=== PATIENT | male | born 1950 | race Caucasian/White ===

== ENCOUNTER 2018-05-29 08:06 | Day surgery (SDC) | payer OTHER, MEDICARE ==
[2018-05-29] MEDS: Polymyxin B/Trimethoprim 10 ML Bottle EYERT SCH ×4 (09:39→11:26)
[2018-05-29] MEDS: Brimonidine 0.2% Ophth Soln 5 ML Bottle EYERT SCH ×4 (09:47→11:26)
[2018-05-29] MEDS: Phenylephrine 2.5% Ophth Soln 2 ML Bot EYERT SCH ×6 (09:54→11:04)
--- NOTE | 2018-05-29 09:58 | PCM.PREANE ---
Preanesthetic Assessment - Procedure Proposed Procedure: cataract - Anesthesia/Transfusion/Family Hx Anesthesia History: Prior Anesthesia Without Reaction Family History of Anesthesia Reaction: No Transfusion History: No Prior Transfusion(s) - Review of Systems General: No Symptoms Pulmonary: No Symptoms Cardiovascular: No Symptoms Gastrointestinal: No Symptoms Neurological: No Symptoms Other: Reports: Diabetes - Physical Assessment NPO Status Date: 05/28/18 NPO Status Time: 23:00 O2 Sat by Pulse Oximetry: 97 Respiratory Rate: 16 Vital Signs: Last Vital Signs Temp 98.3 F 05/29/18 09:30 Pulse 72 05/29/18 09:30 Resp 16 05/29/18 09:30 BP 141/71 H 05/29/18 09:30 Pulse Ox 97 05/29/18 09:30 Height: 5 ft 10 in Weight: 83.915 kg ASA Class: 2 Mental Status: Alert & Oriented x3 Airway Class: Mallampati = 1 Dentition: Reports: Broken Tooth/Teeth, Missing Tooth/Teeth, Caries Thyro-Mental Finger Breadths: 3 Mouth Opening Finger Breadths: 3 ROM/Head Extension: Full Lungs: Clear to Auscultation, Normal Respiratory Effort Cardiovascular: Regular Rate, Regular Rhythm - Allergies Allergies/Adverse Reactions: Allergies Allergy/AdvReac Type Severity Reaction Status Date / Time No Known Allergies Allergy Verified 05/28/18 14:26 - Blood Blood Available: No - Anesthesia Plan Beta Elvira: Metoprolol Med Last Dose Date: 05/29/18 Med Last Dose Time: 10:15 - Acknowledgements Anesthesia Type Planned: MAC Pt an Appropriate Candidate for the Planned Anesthesia: Yes Alternatives and Risks of Anesthesia Discussed w Pt/Guardian: Yes Pt/Guardian Understands and Agrees with Anesthesia Plan: Yes PreAnesthesia Questionnaire HEENT History: Reports: Cataract, Other (See Below) (glasses) Cardiovascular History: Reports: High Cholesterol, Hypertension, Stents (4-6 years ago) Respiratory History: Reports: None Gastrointestinal History: Reports: None Endocrine/Metabolic History: Reports: Diabetes, Type II - Past Surgical History Cardiovascular Surgical History: Reports: Coronary Artery Stent Neurological Surgical History: Reports: Laminectomy (times 2), Other (See Below) - SUBSTANCE USE Smoking Status *Q: Never Smoker Tobacco Use Within Last Twelve Months: No Second Hand Smoke Exposure: No Days Per Week of Alcohol Use: 1 Recreational Drug Use History: No - HOME MEDS Home Medications: Home Meds Aspirin [[place] Aspirin] 81 mg PO DAILY 05/28/18 [History] Losartan [Cozaar] 100 mg PO DAILY 05/28/18 [History] Metoprolol Succinate [Toprol XL 50mg] 25 mg PO DAILY 05/28/18 [History] Multivitamin [Daily Nader] 1 each PO DAILY 05/28/18 [History] Saxagliptin HCl [Onglyza] 5 mg PO DAILY 05/28/18 [History] amLODIPine Besylate [Amlodipine Besylate] 10 mg PO DAILY 05/28/18 [History] atorvaSTATin [Lipitor] 10 mg PO BEDTIME 05/28/18 [History] metFORMIN HCl [Metformin HCl] 1,000 mg PO BID 05/28/18 [History] - CURRENT (IN HOUSE) MEDS Current Meds: Current Medications Brimonidine Tartrate (Alphagan 0.2% Oph Soln) 0 ml EYERT ASDIRECTED ROSALIO Stop: 05/29/18 18:00 Last Admin: 05/29/18 09:47 Dose: 1 drop Cefuroxime Sodium (Zinacef) 0 mg EYERT ASDIRECTED ROSALIO Stop: 05/29/18 18:00 Lidocaine HCl (Xylocaine-Mpf 1%) 0 ml INJECT ASDIRECTED ROSALIO Stop: 05/29/18 18:00 Phenylephrine HCl (Alexey-Synephrine 2.5% Ophth Soln) 0 ml EYERT ASDIRECTED ROSALIO Stop: 05/29/18 18:00 Pilocarpine HCl (Pilocar 4% Ophth Soln) 0 ml EYERT ASDIRECTED ROSALIO Stop: 05/29/18 18:00 Polymyxin/Trimethoprim Sulfate (Polytrim Ophth Soln) 0 ml EYERT ASDIRECTED ROSALIO Stop: 05/29/18 18:00 Last Admin: 05/29/18 09:39 Dose: 1 drop Tetracaine HCl (Tetracaine 0.5% Steri-Unit Bee) 0 ml EYERT ASDIRECTED ROSALIO Stop: 05/29/18 18:00 Tropicamide (Mydriacyl 1% Oph Soln) 0 ml EYERT ASDIRECTED ROSALIO Stop: 05/29/18 18:00
[2018-05-29] MEDS: Tropicamide 1% Ophth Soln 15 ML Bottle EYERT SCH ×4 (10:00→10:42)
[2018-05-29] MEDS: Lidocaine 1% PF 2 ML SDV INJECT SCH ×2 (10:25→11:12)
[2018-05-29] MEDS: Tetracaine HCl/PF 0.5% 4 ML Bottle EYERT SCH ×3 (10:25→11:12)
[2018-05-29] MEDS: Cefuroxime 10 MG/ML SYRINGE EYERT SCH ×2 (10:26→11:25)
[2018-05-29] MEDS: Pilocarpine 4% Ophth Soln 15 ML Bot EYERT SCH ×2 (10:26→11:26)
[2018-05-29] MEDS ORDERED: Metoprolol Succinate 25 MG Tab.ER PO ONE (10:30)
--- NOTE | 2018-05-29 11:35 | PCM48HPAN ---
Post Anesthesia Note - EVALUATION WITHIN 48HRS OF ANESTHETIC Vital Signs in Normal Range: Yes Patient Participated in Evaluation: Yes Respiratory Function Stable: Yes Airway Patent: Yes Cardiovascular Function Stable: Yes Hydration Status Stable: Yes Pain Control Satisfactory: Yes Nausea and Vomiting Control Satisfactory: Yes Mental Status Recovered: Yes Pulse Rate: 72 Resp Rate: 16 Blood Pressure: 141/71
== END 2018-05-29 11:35 | disposition home or self-care (01) ==
LOC: JD.SDS 08:06
PROVIDERS: ATTEND Ophthalmology
DX: E11.36 Type 2 diabetes mellitus with diabetic cataract (principal); H25.813 Combined forms of age-related cataract, bilateral; H31.093 Other chorioretinal scars, bilateral; H35.372 Puckering of macula, left eye; H02.834 Dermatochalasis of left upper eyelid; H02.831 Dermatochalasis of right upper eyelid; E11.3293 Type 2 diabetes mellitus with mild nonproliferative diabetic retinopathy without macular edema, bilateral; I10 Essential (primary) hypertension; E78.00 Pure hypercholesterolemia, unspecified; Z95.5 Presence of coronary angioplasty implant and graft; Z79.82 Long term (current) use of aspirin; Z79.84 Long term (current) use of oral hypoglycemic drugs; Z79.899 Other long term (current) drug therapy
CPT/HCPCS: 66982; A9270; C1780; J0697; J2001; 82962

== ENCOUNTER 2018-07-03 06:45 | Day surgery (SDC) | payer OTHER, MEDICARE ==
[2018-07-03] MEDS: Polymyxin B/Trimethoprim 10 ML Bottle EYELF SCH ×4 (07:12→08:54)
--- NOTE | 2018-07-03 07:14 | PCM.PREANE ---
Preanesthetic Assessment - Anesthesia/Transfusion/Family Hx Anesthesia History: Prior Anesthesia Without Reaction Family History of Anesthesia Reaction: No Transfusion History: No Prior Transfusion(s) - Review of Systems General: No Symptoms Pulmonary: No Symptoms Cardiovascular: Other (HTN, CAD with stent placement) Gastrointestinal: No Symptoms Other: Reports: None, Diabetes (dm 2, on oral agents) - Physical Assessment NPO Status Date: 07/02/18 NPO Status Time: 18:30 Pulse: 63 O2 Sat by Pulse Oximetry: 98 Respiratory Rate: 16 Blood Pressure: 144/71 Vital Signs: Last Vital Signs Temp 36.4 C 07/03/18 06:55 Pulse 63 07/03/18 06:55 Resp 16 07/03/18 06:55 BP 144/71 H 07/03/18 06:55 Pulse Ox 98 07/03/18 06:55 Height: 1.78 m Weight: 83.915 kg ASA Class: 2 Mental Status: Alert & Oriented x3 Airway Class: Mallampati = 2 Dentition: Reports: Normal Dentition Thyro-Mental Finger Breadths: 3 Mouth Opening Finger Breadths: 3 ROM/Head Extension: Full Lungs: Clear to Auscultation, Normal Respiratory Effort Cardiovascular: Regular Rate, Regular Rhythm - Allergies Allergies/Adverse Reactions: Allergies Allergy/AdvReac Type Severity Reaction Status Date / Time No Known Allergies Allergy Verified 07/02/18 13:52 - Blood Blood Available: No Product(s) Available: None - Anesthesia Plan Pre-Op Medication Ordered: None Beta Elvira: Metoprolol Med Last Dose Date: 07/02/18 Med Last Dose Time: 17:00 - Acknowledgements Anesthesia Type Planned: MAC Pt an Appropriate Candidate for the Planned Anesthesia: Yes Alternatives and Risks of Anesthesia Discussed w Pt/Guardian: Yes Pt/Guardian Understands and Agrees with Anesthesia Plan: Yes PreAnesthesia Questionnaire HEENT History: Reports: Cataract, Other (See Below) (glasses) Cardiovascular History: Reports: High Cholesterol, Hypertension, Stents (4-6 years ago) Respiratory History: Reports: None Gastrointestinal History: Reports: None Endocrine/Metabolic History: Reports: Diabetes, Type II - Past Surgical History Cardiovascular Surgical History: Reports: Coronary Artery Stent Neurological Surgical History: Reports: Laminectomy (times 2), Other (See Below) - HOME MEDS Home Medications: Home Meds Aspirin [[place] Aspirin] 81 mg PO DAILY 05/28/18 [History] Losartan [Cozaar] 100 mg PO DAILY 05/28/18 [History] Metoprolol Succinate [Toprol XL 50mg] 25 mg PO BID 05/28/18 [History] Multivitamin [Daily Nader] 1 each PO DAILY 05/28/18 [History] Saxagliptin HCl [Onglyza] 5 mg PO DAILY 05/28/18 [History] amLODIPine Besylate [Amlodipine Besylate] 10 mg PO DAILY 05/28/18 [History] atorvaSTATin [Lipitor] 10 mg PO BEDTIME 05/28/18 [History] metFORMIN HCl [Metformin HCl] 1,000 mg PO BID 05/28/18 [History] - CURRENT (IN HOUSE) MEDS Current Meds: Current Medications Brimonidine Tartrate (Alphagan 0.2% Ophth Soln) 0 ml EYELF ASDIRECTED ROSALIO Stop: 07/03/18 18:00 Cefuroxime Sodium (Zinacef) 0 mg EYELF ASDIRECTED ROSALIO Stop: 07/03/18 18:00 Lidocaine HCl (Xylocaine-Mpf 1%) 1 ml INJECT ASDIRECTED ROSALIO Stop: 07/03/18 18:00 Phenylephrine HCl (Alexey-Synephrine 2.5% Ophth Soln) 0 ml EYELF ASDIRECTED ROSALIO Stop: 07/03/18 18:00 Pilocarpine HCl (Pilocar 4% Ophth Soln) 0 ml EYELF ASDIRECTED ROSALIO Stop: 07/03/18 18:00 Polymyxin/Trimethoprim Sulfate (Polytrim Ophth Soln) 0 ml EYELF ASDIRECTED ROSALIO Stop: 07/03/18 18:00 Tetracaine HCl (Tetracaine 0.5% Steri-Unit Bee) 0 ml EYELF ASDIRECTED ROSALIO Stop: 07/03/18 18:00 Tropicamide (Mydriacyl 1% Ophth Soln) 0 ml EYELF ASDIRECTED ROSALIO Stop: 07/03/18 18:00
[2018-07-03] MEDS: Brimonidine 0.2% Ophth Soln 5 ML Bottle EYELF SCH ×4 (07:16→08:54)
[2018-07-03] MEDS: Phenylephrine 2.5% Ophth Soln 2 ML Bot EYELF SCH ×6 (07:22→08:15)
[2018-07-03] MEDS: Tropicamide 1% Ophth Soln 15 ML Bottle EYELF SCH ×4 (07:26→08:00)
[2018-07-03] MEDS: Lidocaine 1% PF 2 ML SDV INJECT SCH ×2 (07:49→08:37)
[2018-07-03] MEDS: Cefuroxime 10 MG/ML SYRINGE EYELF SCH ×2 (07:49→08:53)
[2018-07-03] MEDS: Tetracaine HCl/PF 0.5% 4 ML Bottle EYELF SCH ×3 (07:49→08:37)
[2018-07-03] MEDS: Pilocarpine 4% Ophth Soln 15 ML Bot EYELF SCH ×2 (07:49→08:54)
--- NOTE | 2018-07-03 09:09 | PCM48HPAN ---
Post Anesthesia Note - EVALUATION WITHIN 48HRS OF ANESTHETIC Vital Signs in Normal Range: Yes Patient Participated in Evaluation: Yes Respiratory Function Stable: Yes Airway Patent: Yes Cardiovascular Function Stable: Yes Hydration Status Stable: Yes Pain Control Satisfactory: Yes Nausea and Vomiting Control Satisfactory: Yes Mental Status Recovered: Yes Pulse Rate: 63 SaO2: 100 Resp Rate: 16 Temperature: 36.5 C Blood Pressure: 144/71 Pulse Rate: 64
== END 2018-07-03 09:03 | disposition home or self-care (01) ==
LOC: JD.SDS 06:45
PROVIDERS: ATTEND Ophthalmology
DX: H25.812 Combined forms of age-related cataract, left eye (principal); H16.223 Keratoconjunctivitis sicca, not specified as Sjogren's, bilateral; H35.372 Puckering of macula, left eye; H02.834 Dermatochalasis of left upper eyelid; H02.831 Dermatochalasis of right upper eyelid; H21.81 Floppy iris syndrome; H21.42 Pupillary membranes, left eye; H52.31 Anisometropia; E11.9 Type 2 diabetes mellitus without complications; I51.9 Heart disease, unspecified; I10 Essential (primary) hypertension; Z96.1 Presence of intraocular lens; Z79.82 Long term (current) use of aspirin; Z79.84 Long term (current) use of oral hypoglycemic drugs; Z79.1 Long term (current) use of non-steroidal anti-inflammatories (NSAID); Z79.899 Other long term (current) drug therapy; Z95.5 Presence of coronary angioplasty implant and graft
CPT/HCPCS: 66982; J0697; J2001; C1780

== ENCOUNTER → 2018-12-04 | Day surgery (SDC) | payer OTHER, MEDICARE ==
[~2018-12-04] MED LIST: Phenylephrine 2.5% Ophth Soln 2 ML Bot EYERT SCH; Tropicamide 1% Ophth Soln 15 ML Bottle EYERT SCH
[2018-12-04] MEDS: Brimonidine 0.2% Ophth Soln 5 ML Bottle EYERT SCH ×2 (09:56→11:07)
== END ==
LOC: JD.SDS 09:49
PROVIDERS: ATTEND Ophthalmology
DX: H26.491 Other secondary cataract, right eye (principal); E11.3293 Type 2 diabetes mellitus with mild nonproliferative diabetic retinopathy without macular edema, bilateral; H35.373 Puckering of macula, bilateral; I10 Essential (primary) hypertension; Z98.41 Cataract extraction status, right eye; Z98.42 Cataract extraction status, left eye; Z96.1 Presence of intraocular lens; Z95.5 Presence of coronary angioplasty implant and graft; Z83.511 Family history of glaucoma; Z83.518 Family history of other specified eye disorder; Z79.4 Long term (current) use of insulin